=== PATIENT | male | born 1960 | race Asian ===

== ENCOUNTER 2018-05-07 17:21 | Inpatient (IN) | payer MEDICARE, MEDICAID ==
--- NOTE | 2018-05-07 17:46 | ED Physician Chart ---
ED Chief Complaint/HPI - Patient Information Date Seen:: 05/07/18 Time Seen:: 17:30 Chief Complaint:: Suicidal Thoughts History of Present Illness:: onset x one day of SIs and depression; no report of trauma, H/As, LOC, ALOC, AMS , neck pain, C/P, SOB, Abd. pain, A/N/V/D/C, fever, chills, or urinary s/s Historian:: Patient, EMS Review:: Nurse's Note Reviewed, Old Chart Reviewed, EMS run form Reviewed ED Review of Systems - Review of Systems General/Constitutional: No fever, No chills, No weight loss, No weakness, No diaphoresis, No edema, No loss of appetite Skin: No skin lesions, No rash, No bruising Head: No headache, No light-headedness Eyes: No loss of vision, No pain, No diplopia ENT: No earache, No nasal drainage, No sore throat, No tinnitus Neck: No neck pain, No swelling, No thyromegaly, No stiffness, No mass noted Cardio Vascular: No chest pain, No palpitations, No PND, No orthopnea, No edema Pulmonary: No SOB, No cough, No sputum, No wheezing GI: No nausea, No vomiting, No diarrhea, No pain, No melena, No hematochezia, No constipation, No hematemesis G/U: No dysuria, No frequency, No hematuria Musculoskeletal: No bone or joint pain, No back pain, No muscle pain Endocrine: No polyuria, No polydipsia Psychiatric: Prior psych history, Depression, Anxiety, No suicidal ideation, No homicidal ideation, Auditory hallucination, No visual hallucination Hematopoietic: No bruising, No lymphadenopathy Allergic/Immuno: No urticaria, No angioedema Neurological: No syncope, No focal symptoms, No weakness, No paresthesia, No headache, No seizure, No dizziness, No confusion, No vertigo ED Past Medical History - Past Medical History Obtainable: Yes Past Medical History: HTN Family History: HTN Social History: Non Smoker, No Alcohol, No Drug Use, Single, Care Facility Surgical History: None Psychiatricy History: Depression, Schizophrenia Medication: Reviewed Family Medical History - Family Member Mother History Unknown: Yes ED Physical Exam - Physical Examination General/Constitutional: Awake, Well-developed, well-nourished, Alert, No distress, GCS 15, Non-toxic appearing, Ambulatory Head: Atraumatic Eyes: Lids, conjuctiva normal, PERRL, EOMI Skin: Nl inspection, No rash, No skin lesions, No ecchymosis, Well hydrated, No lymphadenopathy ENMT: External ears, nose nl, TM canals nl, Nasal exam nl, Lips, teeth, gums nl , Oropharynx nl, Tonsils nl Neck: Nontender, Full ROM w/o pain, No JVD, No nuchal rigidity, No bruit, No mass, No stridor Respiratory: Nl effort/Exclusion, Clear to Auscultation, No Wheeze/Rhonchi/Rales Cardio Vascular: RRR, No murmur, gallop, rubs, NL S1 S2, Carotid/Femoral/Distal pulses equal bilaterally GI: No tenderness/rebounding/guarding, No organomegaly, No hernia, Normal BS's, Nondistended, No mass/bruits, No McBurney tenderness : No CVA tenderness Extremities: No tenderness or effusion, Full ROM, normal strength in all extremities, No edema, Normal digits & nails Neuro/Psych: Alert/oriented, DTR's symmetric, Normal sensory exam, Normal motor strength, Judgement/insight normal, Mood normal, Normal gait, No focal deficits Other Neuro/Psych comments:: + Psychomotor Retardation; + SIs; Mood/Affect: Labile Misc: Normal back, No paraspinal tenderness ED Labs/Radiology/EKG Results - Lab Results Comments:: Reviewed - EKG Interpretations EKG Time:: 18:25 Rate & Rhythm: 86; NSR Comments:: non-specific st-t changes ED Septic Shock - . Is Septic Shock (SBP<90, OR Lactate>4 mmol\L) present?: No ED Reassessment (Disposition) - Reassessment Reassessment Condition:: Improved - Diagnosis Diagnosis:: Depression; Schizophrenia; Suicidal Ideations; Medical Clearance; Hypokalemia; UTI; Schizo-Affective Disorder - Aftercare/Follow up Instructions Aftercare/Follow-Up Instructions:: Counseled pt regarding lab results/diagnosis & need follow up, Counseled pt & family regarding lab results/diagnosis & need follow up - Patient Disposition Discharge/Transfer:: Acute Care w/in this hosp Admitted to:: [facility] Condition at Disposition:: Stable, Improved
[2018-05-07 18:36] LABS: % BASOPHILS 0.1 % (0.0-2.0); % EOSINOPHILS 1.7 % (0.0-5.0); % LYMPHOCYTES 24.5 % (20.0-50.0); % NEUTROPHILS 65.7 % (40.0-80.0); EOSINOPHILE ABSOLUTE 0.1 Th/cmm (0.1-0.4); HEMATOCRIT 39.6 % (41.0-60); LYMPHOCYTE ABSOLUTE 1.5 Th/cmm (1.5-3.0); MEAN CELL VOLUME 88.1 fl (80-99); MEAN CORPUSCULAR HGB CONC 32.9 pg (28.0-36.0); MEAN PLATELET VOLUME 7.3 fl; MONOCYTE ABSOLUTE 0.5 Th/cmm (0.3-1.0); NEUTROPHILE ABSOLUTE 4.2 Th/cmm (1.8-8.0); PLATELET COUNT 284 Th/cmm (150-400); RED CELL DISTRIBUTION WIDTH 14.4 % (11.5-20.0); WHITE BLOOD COUNT 6.3 Th/cmm (4.8-10.8)
[2018-05-07 18:54] LABS: ACETAMINOPHEN < 10.0 ug/mL (10.0-30.0); ALB/GLOB RATIO 1.5 (1.0-1.8); ALBUMIN 3.9 gm/dL (4.2-5.5); ALKALINE PHOSPHATASE 45 U/L (34-104); ANION GAP 13.5 (7.0-16.0); BILIRUBIN,TOTAL 0.2 mg/dL (0.3-1.0); BUN - UREA NITROGEN 10 mg/dL (7-25); CALCIUM SERUM 9.2 mg/dL (8.6-10.3); CARBON DIOXIDE 24.8 mEq/L (21.0-31.0); CHLORIDE 105 mEq/L (98-107); CHOLESTEROL 204 mg/dL (<200); GFR AFRICAN-AMERICAN > 60.0 ml/min (>90); GFR NON AFRICAN-AMERICAN > 60.0 ml/min; GLUCOSE 110 mg/dL (70-105); HDL -HIGH DENSITY LIPOPROTEIN 54 mg/dL (23-92); POTASSIUM SERUM 3.3 mEq/L (3.5-5.1); SGOT 14 U/L (13-39); SGPT/ALT 9 U/L (7-52); SODIUM SERUM 140 mEq/L (136-145); TOTAL PROTEIN,SERUM 6.5 gm/dL (6.0-8.3); TRIGLYCERIDES 137 mg/dL (<150)
[2018-05-07 18:57] LABS: SALICYLATES (ASPIRIN) < 25.0 mg/L (30.0-100.0)
[2018-05-07 18:59] LABS: AMPHETAMINE URINE NEGATIVE (NEGATIVE); BARBITURATES URINE NEGATIVE (NEGATIVE); BENZODIAZEPINES QUAL URINE NEGATIVE (NEGATIVE); CANNABINOID THC NEGATIVE (NEGATIVE); COCAINE METABOLITE QUAL URINE NEGATIVE (NEGATIVE); METHADONE URINE NEGATIVE (NEGATIVE); METHAMPHETAMINES QUAL URINE NEGATIVE (NEGATIVE); OPIATES (MORPHINE) QUAL. URINE NEGATIVE (NEGATIVE); PHENCYCLIDINE (PCP) URINE NEGATIVE (NEGATIVE); TRICYCLICS (TCA) QUAL. URINE NEGATIVE (NEGATIVE)
[2018-05-07 19:06] LABS: URINE BILIRUBIN NEGATIVE (NEGATIVE); URINE BLOOD NEGATIVE (NEGATIVE); URINE GLUCOSE (UA) NEGATIVE (NEGATIVE); URINE KETONE NEGATIVE (NEGATIVE); URINE LEUKOCYTE ESTERASE NEGATIVE (NEGATIVE); URINE NITRATE NEGATIVE (NEGATIVE); URINE PROTEIN NEGATIVE (NEGATIVE); URINE UROBILINOGEN 0.2 E.U./dL (0.2 - 1.0)
[2018-05-07 19:08] LABS: URINE CLARITY CLEAR (CLEAR); URINE COLOR YELLOW
[2018-05-07 19:11] LABS: URINE EPITHELIAL CELLS NONE SEEN /lpf (FEW); URINE MICROSCOPIC INDICATED? YES; URINE RBC NONE SEEN /hpf (0-5); URINE SOURCE CLEAN CATCH; URINE WBC 0-2 /hpf (0-5)
[2018-05-07 19:12] LABS: URINE BACTERIA OCCASIONAL /hpf (NONE SEEN)
[2018-05-07] MEDS ORDERED: Potassium Chloride 20 mEq ER Tab PO ONE ×2 (19:39→19:40)
[2018-05-07] MEDS ORDERED: Sulfamethoxazole/TMP 800/160mg Tab PO ONE (19:39)
[2018-05-07] MEDS ORDERED: Sulfamethoxazole/TMP 800/160mg Tab ONE (19:41)
[2018-05-07 20:13] VITALS: BP 120/54
[2018-05-07] MEDS ORDERED: Magnesium Hydroxide (MOM) 30 mL UDC PO PRN (20:16)
[2018-05-07] MEDS ORDERED: Maalox 30 mL Cup PO PRN (20:16)
[2018-05-07 20:45] LABS: CHOLESTEROL 205 mg/dL (<200); HDL -HIGH DENSITY LIPOPROTEIN 55 mg/dL (23-92); TRIGLYCERIDES 140 mg/dL (<150)
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
[2018-05-08] MEDS: Multivitamin Tab PO SCH (17:19)
[2018-05-09] MEDS: Multivitamin Tab PO SCH (08:15)
--- NOTE | 2018-05-09 18:09 | History & Physical ---
ADMIT DATE: 05/07/2018 HISTORY OF PRESENT ILLNESS: The patient was admitted on 05/07. This patient was admitted because of increasing agitation and depression. No history of trauma. No other problems. REVIEW OF SYSTEMS: Otherwise, negative. PAST MEDICAL HISTORY: History of hypertension, history of depression, and history of schizophrenia. PHYSICAL EXAMINATION: GENERAL: Awake, alert, confused. HEAD: Normal. ENT: Normal. NECK: Supple, nontender. LUNGS: Clear. CARDIOVASCULAR SYSTEM: S1, S2 heard. ABDOMEN: Soft. Bowel sounds are heard. CENTRAL NERVOUS SYSTEM: Decreased sensorium and agitation. DIAGNOSES: Psychomotor retardation with history of suicidal thoughts and ideation and the patient is labile having history of depression, schizophrenia, and history of hypertension. PLAN: The patient is admitted to Psych Unit and I will follow the patient along with Dr. Campbell and I will followup of medical problems. JOB# [id number]
[2018-05-10] MEDS: Multivitamin Tab PO SCH (08:41)
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
--- NOTE | 2018-05-10 13:06 | History & Physical ---
ADMIT DATE: 05/09/2018 CHIEF COMPLAINT: Suicidal thoughts. HISTORY OF PRESENT ILLNESS: This is a 57-year-old male who is a [facility] resident, admitted to the Geropsych Unit due to 1-day history of suicidal ideation as well as with depression. PAST MEDICAL HISTORY: Hypertension. PAST SURGICAL HISTORY: Unknown. ALLERGIES: No drug allergies. SOCIAL HISTORY: The patient is a [facility] resident, requiring 24-hour nursing care. REVIEW OF SYSTEMS: GENERAL: Denies any fever or chills. CARDIOVASCULAR: Denies chest pain. RESPIRATORY: Denies shortness of breath. GASTROINTESTINAL: Denies nausea, vomiting, abdominal pain. GENITOURINARY: Denies increased frequency or dysuria. NEUROLOGIC: No headache, seizure or syncope. All systems are reviewed and negative. PHYSICAL EXAMINATION: GENERAL: The patient is a well-developed, well-nourished, no apparent distress. VITAL SIGNS: Temperature 98.4, heart rate 72, blood pressure 110/65, respirations 19 and O2 98%-99%. HEENT: Head; normocephalic, atraumatic. NECK: Supple. No mass. LUNGS: Clear bilaterally. HEART: Regular rate and rhythm. ABDOMEN: Soft and nontender. LABORATORY DATA: WBC 6.3, H and H 13.0 and 39.6 and platelets of 284. Sodium 140, potassium 3.3, chloride of 105, BUN 10 and creatinine 1.0. ASSESSMENT: Hypertension, depression, schizophrenia and suicidal ideation. PLAN: Fall precautions have been initiated. The patient to [facility] medications from the [facility]. Continue current plan of care. JOB# [id number]
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
--- NOTE | 2018-05-10 19:03 | Progress Notes ---
DATE: 05/10/2018 SUBJECTIVE: The patient was seen in his room. The patient is eating lunch, appears to be guarded. Admits to still have some depression, episodes of agitation, otherwise the patient appears to be in no acute distress. OBJECTIVE: VITAL SIGNS: Temperature 97.2, heart rate 88, blood pressure 128/76, respirations 17, 100% on room air. HEENT: Head is atraumatic and normocephalic. Eyes: Bilateral conjunctivae are clear. Bilateral pupils are equally round and reactive. NECK: Supple. No JVD. CARDIOVASCULAR: S1 and S2, without murmur. PULMONARY: Clear to auscultation. GASTROINTESTINAL: Soft and nontender without guarding. Positive bowel sounds. MUSCULOSKELETAL: No clubbing. No cyanosis noted. ASSESSMENT: 1. Depression. 2. Hypertension. 3. Neuropathy. 4. Osteoarthritis. PLAN: We will keep the patient inpatient Psychiatric Unit. We will follow up with psychiatrist. We will monitor the patient's condition and behavior. Treatment plans were discussed with the patient's nurse. Treatment plans were discussed with Dr. Yang. JOB# [id number]
--- NOTE | 2018-05-10 21:58 | Progress Notes ---
DATE: 05/10/2018 PSYCHIATRIC PROGRESS NOTE SUBJECTIVE: Staff was spoken to. The patient is interviewed. Continues to be paranoid. Insight and judgment at this time are noted to be still impaired. Impulse control is noted to be limited. No side effects to the medications are noted. ASSESSMENT: The patient is still psychotic and is insisting on leaving the place. PLAN: To continue the patient with the supportive therapy, encouraged the patient to verbalize the concerns. The patient is not safe to be discharged. JOB# [id number]
[2018-05-11] MEDS: Multivitamin Tab PO SCH (08:07)
--- NOTE | 2018-05-11 10:42 | Internal Medicine Prog Note ---
Internal Medicine Subjective - Subjective Patient seen and examined:: chart reviewed Patient is:: awake, other (paranoid, psychotic ) Per staff patient has:: no adverse event Internal Medicine Objective - Results Result Diagrams: 05/07/18 18:25 05/07/18 18:25 Recent Labs: Laboratory Last Values WBC 6.3 Th/cmm (4.8-10.8) 05/07/18 18: RBC 4.50 Mil/cmm (4.30-5.70) 05/07/18 18: Hgb 13.0 gm/dL (12-16) 05/07/18 18:25 Hct 39.6 % (41.0-60) L 05/07/18 18: MCV 88.1 fl (80-99) 05/07/18 18: MCH 29.0 pg (26.0-30.0) 05/07/18 18: MCHC Differential 32.9 pg (28.0-36.0) 05/07/18 18: RDW 14.4 % (11.5-20.0) 05/07/18 18: Plt Count 284 Th/cmm (150-400) 05/07/18 18:25 MPV 7.3 fl 05/07/18 18: Neutrophils % 65.7 % (40.0-80.0) 05/07/18 18: Lymphocytes % 24.5 % (20.0-50.0) 05/07/18 18: Monocytes % 8.0 % (2.0-10.0) 05/07/18 18: Eosinophils % 1.7 % (0.0-5.0) 05/07/18 18: Basophils % 0.1 % (0.0-2.0) 05/07/18 18:25 Sodium 140 mEq/L (136-145) 05/07/18 18:25 Potassium 3.3 mEq/L (3.5-5.1) L 05/07/18 18:25 Chloride 105 mEq/L (98-107) 05/07/18 18:25 Carbon Dioxide 24.8 mEq/L (21.0-31.0) 05/07/18 18:25 Anion Gap 13.5 (7.0-16.0) 05/07/18 18:25 BUN 10 mg/dL (7-25) 05/07/18 18:25 Creatinine 1.0 mg/dL (0.7-1.3) 05/07/18 18:25 Est GFR ( Amer) > 60.0 ml/min (>90) 05/07/18 18:25 Est GFR (Non-Af Amer) > 60.0 ml/min 05/07/18 18:25 BUN/Creatinine Ratio 10.0 05/07/18 18:25 Glucose 110 mg/dL (70-105) H 05/07/18 18:25 Calcium 9.2 mg/dL (8.6-10.3) 05/07/18 18:25 Total Bilirubin 0.2 mg/dL (0.3-1.0) L 05/07/18 18:25 AST 14 U/L (13-39) 05/07/18 18:25 ALT 9 U/L (7-52) 05/07/18 18:25 Alkaline Phosphatase 45 U/L (34-104) 05/07/18 18:25 Troponin I < 0.01 ng/mL (0.01-0.05) L 05/07/18 18:25 Total Protein 6.5 gm/dL (6.0-8.3) 05/07/18 18:25 Albumin 3.9 gm/dL (4.2-5.5) L 05/07/18 18:25 Globulin 2.6 gm/dL 05/07/18 18:25 Albumin/Globulin Ratio 1.5 (1.0-1.8) 05/07/18 18:25 Triglycerides 140 mg/dL (<150) 05/07/18 18:25 Cholesterol 205 mg/dL (<200) H 05/07/18 18:25 LDL Cholesterol Direct 120 mg/dL (75-193) 05/07/18 18:25 HDL Cholesterol 55 mg/dL (23-92) 05/07/18 18:25 TSH 3.41 uIU/ml (0.34-5.60) 05/07/18 18:25 Urine Source CLEAN CATCH 05/07/18 18:18 Urine Color YELLOW 05/07/18 18:18 Urine Clarity CLEAR (CLEAR) 05/07/18 18:18 Urine pH 6.0 (4.6 - 8.0) 05/07/18 18:18 Ur Specific [place] <= 1.005 (1.005-1.030) 05/07/18 18:18 Urine Protein NEGATIVE mg/dL (NEGATIVE) 05/07/18 18:18 Urine Glucose (UA) NEGATIVE mg/dL (NEGATIVE) 05/07/18 18:18 Urine Ketones NEGATIVE mg/dL (NEGATIVE) 05/07/18 18:18 Urine Blood NEGATIVE (NEGATIVE) 05/07/18 18:18 Urine Nitrate NEGATIVE (NEGATIVE) 05/07/18 18:18 Urine Bilirubin NEGATIVE (NEGATIVE) 05/07/18 18:18 Urine Urobilinogen 0.2 E.U./dL (0.2 - 1.0) 05/07/18 18:18 Ur Leukocyte Esterase NEGATIVE (NEGATIVE) 05/07/18 18:18 Urine RBC NONE SEEN /hpf (0-5) 05/07/18 18:18 Urine WBC 0-2 /hpf (0-5) 05/07/18 18:18 Ur Epithelial Cells NONE SEEN /lpf (FEW) 05/07/18 18:18 Urine Bacteria OCCASIONAL /hpf (NONE SEEN) 05/07/18 18:18 Salicylates < 25.0 mg/L (30.0-100.0) L 05/07/18 18:25 Urine Opiates Screen NEGATIVE (NEGATIVE) 05/07/18 18:18 Urine Methadone Screen NEGATIVE (NEGATIVE) 05/07/18 18:18 Acetaminophen < 10.0 ug/mL (10.0-30.0) L 05/07/18 18:25 Ur Barbiturates Screen NEGATIVE (NEGATIVE) 05/07/18 18:18 Ur Tricyclics Screen NEGATIVE (NEGATIVE) 05/07/18 18:18 Ur Phencyclidine Scrn NEGATIVE (NEGATIVE) 05/07/18 18:18 Amphetamines Screen NEGATIVE (NEGATIVE) 05/07/18 18:18 U Methamphetamines Scrn NEGATIVE (NEGATIVE) 05/07/18 18:18 U Benzodiazepines Scrn NEGATIVE (NEGATIVE) 05/07/18 18:18 U Cocaine Metab Screen NEGATIVE (NEGATIVE) 05/07/18 18:18 U Cannabinoids Screen NEGATIVE (NEGATIVE) 05/07/18 18:18 Ethyl Alcohol < 10 mg/dL (0-10) 05/07/18 18:25 RPR NONREACTIVE (NONREACTIVE) 05/07/18 18:25 - Physical Exam Vitals and I&O: Vital Signs Temp 98.8 F 05/11/18 06:06 Pulse 81 05/11/18 08:07 Resp 19 05/11/18 06:06 BP 99/63 05/11/18 08:07 Pulse Ox 99 05/11/18 06:06 Intake & Output 05/10/18 05/11/18 05/11/18 18:59 06:59 18:59 Intake Total 240 Balance 240 Weight (lbs) 56.699 kg Intake: Oral 240 Other: # Voids 4 3 # Bowel Movements 1 0 Weight Source Bedscale Active Medications: Current Medications Acetaminophen (Tylenol) 650 mg PO Q4HR PRN PRN Reason: Mild Pain / Temp above 100 Stop: 07/06/18 20:15 Al Hydrox/Mg Hydrox/Simethicone (Maalox) 30 ml PO Q4HR PRN PRN Reason: GI DISTRESS Stop: 07/06/18 20:15 Amlodipine Besylate (Norvasc) 5 mg PO DAILY DINORA Stop: 07/07/18 08:59 Last Admin: 05/11/18 08:07 Dose: 5 mg Fluoxetine HCl (Prozac) 20 mg PO DAILY DINORA; Protocol Stop: 07/07/18 08:59 Last Admin: 05/11/18 08:07 Dose: 20 mg Gabapentin (Neurontin) 100 mg PO BID DINORA Stop: 07/07/18 08:59 Last Admin: 05/11/18 08:07 Dose: 100 mg Lorazepam (Ativan) 0.5 mg PO Q4HR PRN; Protocol PRN Reason: Anxiety Stop: 06/06/18 20:15 Last Admin: 05/09/18 10:52 Dose: 0.5 mg Magnesium Hydroxide (Milk Of Magnesia) 30 ml PO HS PRN PRN Reason: Constipation Multivitamins/Vitamin C (Theragran) 1 tab PO DAILY DINORA Stop: 07/07/18 08:59 Last Admin: 05/11/18 08:07 Dose: 1 tab Risperidone (Risperdal) 2 mg PO BID DINORA; Protocol Stop: 07/07/18 16:59 Last Admin: 05/11/18 08:07 Dose: 2 mg Zolpidem Tartrate (Ambien) 5 mg PO HS PRN PRN Reason: Insomnia Stop: 07/06/18 20:15 General: demented HEENT: NC/AT Neck: Supple Lungs: CTAB Cardiovascular: Normal S1, Normal S2 Abdomen: soft, non-tender Extremities: clear Internal Medicine Assmt/Plan - Assessment Assessment: schizophrenia psychomotor retardation h/o si thoughts h/o depression htn - Plan Plan: as per psych will monitor
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
[2018-05-12] MEDS: Multivitamin Tab PO SCH (08:35)
--- NOTE | 2018-05-12 14:41 | Internal Medicine Prog Note ---
Internal Medicine Subjective - Subjective Patient is:: awake, other (paranoid, anxious) Per staff patient has:: no adverse event Internal Medicine Objective - Results Result Diagrams: 05/07/18 18:25 05/07/18 18: Recent Labs: Laboratory Last Values WBC 6.3 Th/cmm (4.8-10.8) 05/07/18 18: RBC 4.50 Mil/cmm (4.30-5.70) 05/07/18 18: Hgb 13.0 gm/dL (12-16) 05/07/18 18: Hct 39.6 % (41.0-60) L 05/07/18 18: MCV 88.1 fl (80-99) 05/07/18 18: MCH 29.0 pg (26.0-30.0) 05/07/18 18: MCHC Differential 32.9 pg (28.0-36.0) 05/07/18 18: RDW 14.4 % (11.5-20.0) 05/07/18 18: Plt Count 284 Th/cmm (150-400) 05/07/18 18: MPV 7.3 fl 05/07/18 18: Neutrophils % 65.7 % (40.0-80.0) 05/07/18 18: Lymphocytes % 24.5 % (20.0-50.0) 05/07/18 18: Monocytes % 8.0 % (2.0-10.0) 05/07/18 18: Eosinophils % 1.7 % (0.0-5.0) 05/07/18 18: Basophils % 0.1 % (0.0-2.0) 05/07/18 18:25 Sodium 140 mEq/L (136-145) 05/07/18 18:25 Potassium 3.3 mEq/L (3.5-5.1) L 05/07/18 18:25 Chloride 105 mEq/L (98-107) 05/07/18 18:25 Carbon Dioxide 24.8 mEq/L (21.0-31.0) 05/07/18 18:25 Anion Gap 13.5 (7.0-16.0) 05/07/18 18:25 BUN 10 mg/dL (7-25) 05/07/18 18:25 Creatinine 1.0 mg/dL (0.7-1.3) 05/07/18 18:25 Est GFR ( Amer) > 60.0 ml/min (>90) 05/07/18 18:25 Est GFR (Non-Af Amer) > 60.0 ml/min 05/07/18 18:25 BUN/Creatinine Ratio 10.0 05/07/18 18:25 Glucose 110 mg/dL (70-105) H 05/07/18 18:25 Calcium 9.2 mg/dL (8.6-10.3) 05/07/18 18:25 Total Bilirubin 0.2 mg/dL (0.3-1.0) L 05/07/18 18:25 AST 14 U/L (13-39) 05/07/18 18:25 ALT 9 U/L (7-52) 05/07/18 18:25 Alkaline Phosphatase 45 U/L (34-104) 05/07/18 18:25 Troponin I < 0.01 ng/mL (0.01-0.05) L 05/07/18 18:25 Total Protein 6.5 gm/dL (6.0-8.3) 05/07/18 18:25 Albumin 3.9 gm/dL (4.2-5.5) L 05/07/18 18:25 Globulin 2.6 gm/dL 05/07/18 18:25 Albumin/Globulin Ratio 1.5 (1.0-1.8) 05/07/18 18:25 Triglycerides 140 mg/dL (<150) 05/07/18 18:25 Cholesterol 205 mg/dL (<200) H 05/07/18 18:25 LDL Cholesterol Direct 120 mg/dL (75-193) 05/07/18 18:25 HDL Cholesterol 55 mg/dL (23-92) 05/07/18 18:25 TSH 3.41 uIU/ml (0.34-5.60) 05/07/18 18:25 Urine Source CLEAN CATCH 05/07/18 18:18 Urine Color YELLOW 05/07/18 18:18 Urine Clarity CLEAR (CLEAR) 05/07/18 18:18 Urine pH 6.0 (4.6 - 8.0) 05/07/18 18:18 Ur Specific [place] <= 1.005 (1.005-1.030) 05/07/18 18:18 Urine Protein NEGATIVE mg/dL (NEGATIVE) 05/07/18 18:18 Urine Glucose (UA) NEGATIVE mg/dL (NEGATIVE) 05/07/18 18:18 Urine Ketones NEGATIVE mg/dL (NEGATIVE) 05/07/18 18:18 Urine Blood NEGATIVE (NEGATIVE) 05/07/18 18:18 Urine Nitrate NEGATIVE (NEGATIVE) 05/07/18 18:18 Urine Bilirubin NEGATIVE (NEGATIVE) 05/07/18 18:18 Urine Urobilinogen 0.2 E.U./dL (0.2 - 1.0) 05/07/18 18:18 Ur Leukocyte Esterase NEGATIVE (NEGATIVE) 05/07/18 18:18 Urine RBC NONE SEEN /hpf (0-5) 05/07/18 18:18 Urine WBC 0-2 /hpf (0-5) 05/07/18 18:18 Ur Epithelial Cells NONE SEEN /lpf (FEW) 05/07/18 18:18 Urine Bacteria OCCASIONAL /hpf (NONE SEEN) 05/07/18 18:18 Salicylates < 25.0 mg/L (30.0-100.0) L 05/07/18 18:25 Urine Opiates Screen NEGATIVE (NEGATIVE) 05/07/18 18:18 Urine Methadone Screen NEGATIVE (NEGATIVE) 05/07/18 18:18 Acetaminophen < 10.0 ug/mL (10.0-30.0) L 05/07/18 18:25 Ur Barbiturates Screen NEGATIVE (NEGATIVE) 05/07/18 18:18 Ur Tricyclics Screen NEGATIVE (NEGATIVE) 05/07/18 18:18 Ur Phencyclidine Scrn NEGATIVE (NEGATIVE) 05/07/18 18:18 Amphetamines Screen NEGATIVE (NEGATIVE) 05/07/18 18:18 U Methamphetamines Scrn NEGATIVE (NEGATIVE) 05/07/18 18:18 U Benzodiazepines Scrn NEGATIVE (NEGATIVE) 05/07/18 18:18 U Cocaine Metab Screen NEGATIVE (NEGATIVE) 05/07/18 18:18 U Cannabinoids Screen NEGATIVE (NEGATIVE) 05/07/18 18:18 Ethyl Alcohol < 10 mg/dL (0-10) 05/07/18 18:25 RPR NONREACTIVE (NONREACTIVE) 05/07/18 18:25 - Physical Exam Vitals and I&O: Vital Signs Temp 98.4 F 05/12/18 06:01 Pulse 88 05/12/18 08:35 Resp 20 05/12/18 06:01 BP 127/83 05/12/18 08:35 Pulse Ox 94 05/12/18 06:01 Intake & Output 05/11/18 05/12/18 05/12/18 18:59 06:59 18:59 Intake Total 1300 480 Balance 1300 480 Intake: Oral 1300 480 Other: # Voids 2 # Bowel Movements 1 Active Medications: Current Medications Acetaminophen (Tylenol) 650 mg PO Q4HR PRN PRN Reason: Mild Pain / Temp above 100 Stop: 07/06/18 20:15 Al Hydrox/Mg Hydrox/Simethicone (Maalox) 30 ml PO Q4HR PRN PRN Reason: GI DISTRESS Stop: 07/06/18 20:15 Amlodipine Besylate (Norvasc) 5 mg PO DAILY DINORA Stop: 07/07/18 08:59 Last Admin: 05/12/18 08:35 Dose: 5 mg Fluoxetine HCl (Prozac) 20 mg PO DAILY DINORA; Protocol Stop: 07/07/18 08:59 Last Admin: 05/12/18 08:35 Dose: 20 mg Gabapentin (Neurontin) 100 mg PO BID DINORA Stop: 07/07/18 08:59 Last Admin: 05/12/18 08:35 Dose: 100 mg Lorazepam (Ativan) 0.5 mg PO Q4HR PRN; Protocol PRN Reason: Anxiety Stop: 06/06/18 20:15 Last Admin: 05/09/18 10:52 Dose: 0.5 mg Magnesium Hydroxide (Milk Of Magnesia) 30 ml PO HS PRN PRN Reason: Constipation Multivitamins/Vitamin C (Theragran) 1 tab PO DAILY DINORA Stop: 07/07/18 08:59 Last Admin: 05/12/18 08:35 Dose: 1 tab Risperidone (Risperdal) 2 mg PO BID DINORA; Protocol Stop: 07/07/18 16:59 Last Admin: 05/12/18 08:35 Dose: 2 mg Zolpidem Tartrate (Ambien) 5 mg PO HS PRN PRN Reason: Insomnia Stop: 07/06/18 20:15 General: demented HEENT: NC/AT Neck: Supple Lungs: CTAB Cardiovascular: Normal S1, Normal S2 Abdomen: soft, non-tender Extremities: clear Internal Medicine Assmt/Plan - Assessment Assessment: schizophrenia psychomotor retardation h/o si thoughts h/o depression htn - Plan Plan: as per psych will monitor
--- NOTE | 2018-05-13 05:13 | Progress Notes ---
DATE: 05/12/2018 SUBJECTIVE: Staff was spoken to. The patient is interviewed. Mood is noted to be irritable. Affect is constricted. The patient has paranoid delusions, but denies any command hallucinations. No side effects to the medications are noted at this time. The patient is isolative and withdrawn. ASSESSMENT: The patient is still paranoid. PLAN: To continue the patient with the supportive therapy. I encouraged the patient to verbalize the concerns rather than to act out. JOB# [id number]
[2018-05-13] MEDS: Multivitamin Tab PO SCH (09:06)
--- NOTE | 2018-05-13 13:22 | Internal Medicine Prog Note ---
Internal Medicine Subjective - Subjective Service Date: 05/13/18 Patient is:: awake Per staff patient has:: no adverse event Internal Medicine Objective - Results Result Diagrams: 05/07/18 18:25 05/07/18 18: Recent Labs: Laboratory Last Values WBC 6.3 Th/cmm (4.8-10.8) 05/07/18 18: RBC 4.50 Mil/cmm (4.30-5.70) 05/07/18 18: Hgb 13.0 gm/dL (12-16) 05/07/18 18: Hct 39.6 % (41.0-60) L 05/07/18 18: MCV 88.1 fl (80-99) 05/07/18 18: MCH 29.0 pg (26.0-30.0) 05/07/18 18: MCHC Differential 32.9 pg (28.0-36.0) 05/07/18 18: RDW 14.4 % (11.5-20.0) 05/07/18 18: Plt Count 284 Th/cmm (150-400) 05/07/18 18:25 MPV 7.3 fl 05/07/18 18:25 Neutrophils % 65.7 % (40.0-80.0) 05/07/18 18:25 Lymphocytes % 24.5 % (20.0-50.0) 05/07/18 18: Monocytes % 8.0 % (2.0-10.0) 05/07/18 18: Eosinophils % 1.7 % (0.0-5.0) 05/07/18 18: Basophils % 0.1 % (0.0-2.0) 05/07/18 18:25 Sodium 140 mEq/L (136-145) 05/07/18 18:25 Potassium 3.3 mEq/L (3.5-5.1) L 05/07/18 18:25 Chloride 105 mEq/L (98-107) 05/07/18 18:25 Carbon Dioxide 24.8 mEq/L (21.0-31.0) 05/07/18 18:25 Anion Gap 13.5 (7.0-16.0) 05/07/18 18:25 BUN 10 mg/dL (7-25) 05/07/18 18:25 Creatinine 1.0 mg/dL (0.7-1.3) 05/07/18 18:25 Est GFR ( Amer) > 60.0 ml/min (>90) 05/07/18 18:25 Est GFR (Non-Af Amer) > 60.0 ml/min 05/07/18 18:25 BUN/Creatinine Ratio 10.0 05/07/18 18:25 Glucose 110 mg/dL (70-105) H 05/07/18 18:25 Calcium 9.2 mg/dL (8.6-10.3) 05/07/18 18:25 Total Bilirubin 0.2 mg/dL (0.3-1.0) L 05/07/18 18:25 AST 14 U/L (13-39) 05/07/18 18:25 ALT 9 U/L (7-52) 05/07/18 18:25 Alkaline Phosphatase 45 U/L (34-104) 05/07/18 18:25 Troponin I < 0.01 ng/mL (0.01-0.05) L 05/07/18 18:25 Total Protein 6.5 gm/dL (6.0-8.3) 05/07/18 18:25 Albumin 3.9 gm/dL (4.2-5.5) L 05/07/18 18:25 Globulin 2.6 gm/dL 05/07/18 18:25 Albumin/Globulin Ratio 1.5 (1.0-1.8) 05/07/18 18:25 Triglycerides 140 mg/dL (<150) 05/07/18 18:25 Cholesterol 205 mg/dL (<200) H 05/07/18 18:25 LDL Cholesterol Direct 120 mg/dL (75-193) 05/07/18 18:25 HDL Cholesterol 55 mg/dL (23-92) 05/07/18 18:25 TSH 3.41 uIU/ml (0.34-5.60) 05/07/18 18:25 Urine Source CLEAN CATCH 05/07/18 18:18 Urine Color YELLOW 05/07/18 18:18 Urine Clarity CLEAR (CLEAR) 05/07/18 18:18 Urine pH 6.0 (4.6 - 8.0) 05/07/18 18:18 Ur Specific [place] <= 1.005 (1.005-1.030) 05/07/18 18:18 Urine Protein NEGATIVE mg/dL (NEGATIVE) 05/07/18 18:18 Urine Glucose (UA) NEGATIVE mg/dL (NEGATIVE) 05/07/18 18:18 Urine Ketones NEGATIVE mg/dL (NEGATIVE) 05/07/18 18:18 Urine Blood NEGATIVE (NEGATIVE) 05/07/18 18:18 Urine Nitrate NEGATIVE (NEGATIVE) 05/07/18 18:18 Urine Bilirubin NEGATIVE (NEGATIVE) 05/07/18 18:18 Urine Urobilinogen 0.2 E.U./dL (0.2 - 1.0) 05/07/18 18:18 Ur Leukocyte Esterase NEGATIVE (NEGATIVE) 05/07/18 18:18 Urine RBC NONE SEEN /hpf (0-5) 05/07/18 18:18 Urine WBC 0-2 /hpf (0-5) 05/07/18 18:18 Ur Epithelial Cells NONE SEEN /lpf (FEW) 05/07/18 18:18 Urine Bacteria OCCASIONAL /hpf (NONE SEEN) 05/07/18 18:18 Salicylates < 25.0 mg/L (30.0-100.0) L 05/07/18 18:25 Urine Opiates Screen NEGATIVE (NEGATIVE) 05/07/18 18:18 Urine Methadone Screen NEGATIVE (NEGATIVE) 05/07/18 18:18 Acetaminophen < 10.0 ug/mL (10.0-30.0) L 05/07/18 18:25 Ur Barbiturates Screen NEGATIVE (NEGATIVE) 05/07/18 18:18 Ur Tricyclics Screen NEGATIVE (NEGATIVE) 05/07/18 18:18 Ur Phencyclidine Scrn NEGATIVE (NEGATIVE) 05/07/18 18:18 Amphetamines Screen NEGATIVE (NEGATIVE) 05/07/18 18:18 U Methamphetamines Scrn NEGATIVE (NEGATIVE) 05/07/18 18:18 U Benzodiazepines Scrn NEGATIVE (NEGATIVE) 05/07/18 18:18 U Cocaine Metab Screen NEGATIVE (NEGATIVE) 05/07/18 18:18 U Cannabinoids Screen NEGATIVE (NEGATIVE) 05/07/18 18:18 Ethyl Alcohol < 10 mg/dL (0-10) 05/07/18 18:25 RPR NONREACTIVE (NONREACTIVE) 05/07/18 18:25 - Physical Exam Vitals and I&O: Vital Signs Temp 98.7 F 05/13/18 05:20 Pulse 76 05/13/18 09:36 Resp 18 05/13/18 09:36 BP 129/76 05/13/18 09:36 Pulse Ox 97 05/13/18 09:36 Intake & Output 05/12/18 05/13/18 05/13/18 18:59 06:59 18:59 Intake Total 480 Balance 480 Intake: Oral 480 Other: # Voids 2 Active Medications: Current Medications Acetaminophen (Tylenol) 650 mg PO Q4HR PRN PRN Reason: Mild Pain / Temp above 100 Stop: 07/06/18 20:15 Al Hydrox/Mg Hydrox/Simethicone (Maalox) 30 ml PO Q4HR PRN PRN Reason: GI DISTRESS Stop: 07/06/18 20:15 Amlodipine Besylate (Norvasc) 5 mg PO DAILY DINORA Stop: 07/07/18 08:59 Last Admin: 05/13/18 09:06 Dose: 5 mg Fluoxetine HCl (Prozac) 20 mg PO DAILY DINORA; Protocol Stop: 07/07/18 08:59 Last Admin: 05/13/18 09:05 Dose: 20 mg Gabapentin (Neurontin) 100 mg PO BID DINORA Stop: 07/07/18 08:59 Last Admin: 05/13/18 09:05 Dose: 100 mg Lorazepam (Ativan) 0.5 mg PO Q4HR PRN; Protocol PRN Reason: Anxiety Stop: 06/06/18 20:15 Last Admin: 05/09/18 10:52 Dose: 0.5 mg Magnesium Hydroxide (Milk Of Magnesia) 30 ml PO HS PRN PRN Reason: Constipation Multivitamins/Vitamin C (Theragran) 1 tab PO DAILY DINORA Stop: 07/07/18 08:59 Last Admin: 05/13/18 09:06 Dose: 1 tab Risperidone (Risperdal) 2 mg PO BID DINORA; Protocol Stop: 07/07/18 16:59 Last Admin: 05/13/18 09:05 Dose: 2 mg Zolpidem Tartrate (Ambien) 5 mg PO HS PRN PRN Reason: Insomnia Stop: 07/06/18 20:15 General: demented HEENT: NC/AT Neck: Supple Lungs: CTAB Cardiovascular: Normal S1, Normal S2 Abdomen: soft, non-tender Extremities: clear Internal Medicine Assmt/Plan - Assessment Assessment: schizophrenia psychomotor retardation h/o si thoughts h/o depression htn - Plan Plan: continue current plan of care
--- NOTE | 2018-05-13 20:55 | Discharge Summary ---
DATE OF DISCHARGE: 05/13/2018 PSYCHIATRIC DISCHARGE SUMMARY IDENTIFYING DATA: The patient is a 57-year-old male resident of [facility]. JUSTIFICATION OF HOSPITALIZATION: The patient is admitted in view of his depression and psychosis. CHIEF COMPLAINT: "I'm feeling depressed." DIAGNOSES AT THE TIME OF ADMISSION: AXIS I: Major depressive disorder, recurrent with psychotic symptoms, rule out schizophrenia, chronic paranoid type. AXIS II: None. AXIS III: As per Dr. Yang. HOSPITAL COURSE AND RESPONSE TO TREATMENT: The patient's blood work has been done and has been reviewed by Dr. Yang and hematocrit is noted to be 39.6 and potassium was 3.3 that was corrected, glucose noted to be 110. Rest of the labs are noted to be within normal limits. HOSPITAL COURSE AND RESPONSE TO TREATMENT: The patient has been closely monitored on the inpatient unit, provided with supportive psychotherapy. The patient has been placed on Prozac 20 mg in the morning and also given 2 mg of the risperidone and the patient has been closely monitored. No side effects to the medications are noted and the patient started to do fairly well and hence was finally discharged on 05/13/2018 with recommendation that he is going to be followed up by ____ convalescent home in the [facility]. MENTAL STATUS EXAMINATION: At the time of discharge, he is noted to be stable. The patient is not presenting with any threats to harm self or others. The patient is feeling to comply with the treatment. [facility]# [id number]
== END 2018-05-13 13:30 | DRG 885 ==
LOC: ER 17:21 → GERO2 19:43
PROVIDERS: ADMIT Psychiatry & Neurology Psychiatry; ATTEND Psychiatry & Neurology Psychiatry
DX: F33.3 Major depressive disorder, recurrent, severe with psychotic symptoms (principal); F79 Unspecified intellectual disabilities; N39.0 Urinary tract infection, site not specified; R45.851 Suicidal ideations; E87.6 Hypokalemia; I10 Essential (primary) hypertension; Z82.49 Family history of ischemic heart disease and other diseases of the circulatory system
CPT/HCPCS: 36415-UA; 80053-TC; 80061-TC; 80307; 80320-TC; 80329-TC; 81001-TC; 83036-90; 84443-TC; 84484-TC; 85025-TC; 86592-TC; 93005